=== PATIENT | male | born 1940 | race Caucasian/White ===

== ENCOUNTER 2017-01-24 17:08 | Inpatient (IN) | payer MEDICARE ==
[2017-01-24] MEDS ORDERED: 0.9 % SODIUM CHLORIDE 1,000 ML BAG IV ONE (17:25)
--- NOTE | 2017-01-24 17:30 | Emergency Department Record ---
History of Present Illness - General Source: Patient, Family Mode of Arrival: EMS Limitations: Other (History of stroke, some difficulty with speech) - History of Present Illness Initial Comments: 76 yo male presents with abdominal pain that started today. The patient is mildly limited historian due to prior stroke. He developed left sided pain throughout the afternoon. No vomiting but some decreased appetite. Per his he did have a fever of 102. No cough. No dysuria. No diarrhea. He tends to have constipation mostly. He has a history of radiation proctitis. Past surgery includes hernia repair and prostate. Onset/Timin -: Days(s) Location: [facility] Radiation: None Migration to: No migration Severity: Severe Quality: Sharp Consistency: Intermittent Improves With: Nothing Worsens With: Nothing Associated Symptoms: Fever, Nausea <MUNA MILLER - Last Filed: 01/24/17 19:20> <Kalani Black - Last Filed: 01/24/17 23:15> - General Chief Complaint: Abdominal Pain Stated Complaint: ABD PAIN Time Seen by Provider: 01/24/17 17:20 - Related Data Home Medications Medication Instructions Recorded Confirmed Last Taken Amlodipine Besylate [Norvasc] 5 mg PO DAILY 01/24/17 01/24/17 01/24/17 Ascorbic Acid [Vitamin C] 500 mg PO DAILY 01/24/17 01/24/17 01/24/17 Cholecalciferol (Vitamin D3) 5,000 unit PO DAILY 01/24/17 01/24/17 01/24/17 [Vitamin D3] Docusate Sodium [Colace] 100 mg PO QHS 01/24/17 01/24/17 01/23/17 Docusate Sodium [Stool Softener] 100 mg PO QHS 01/24/17 01/24/17 01/23/17 Donepezil HCl 5 mg PO QHS 01/24/17 01/24/17 01/23/17 Escitalopram Oxalate [Lexapro] 10 mg PO DAILY 01/24/17 01/24/17 Unknown Ezetimibe 10 mg PO DAILY 01/24/17 01/24/17 01/24/17 Fexofenadine HCl 60 mg PO DAILY 01/24/17 01/24/17 01/24/17 Fluticasone Propionate [Flonase] 2 spray EACH NARES DAILY 01/24/17 01/24/1717 Levothyroxine Sodium [Synthroid] 50 mcg PO DAILY 01/24/17 01/24/17 01/24/17 Losartan Potassium [Losartan 50 mg PO DAILY 01/24/17 01/24/17 01/23/17 Potassium] Melatonin 10 mg PO QHS 01/24/17 01/24/17 01/23/17 Modafinil [Provigil] 100 mg PO DAILY 01/24/17 01/24/17 01/24/17 [place]-3 Fatty Acids/Fish Oil [Fish 1 each PO DAILY 01/24/17 01/24/17 01/24/17 Oil 1,000 mg Capsule] Omeprazole 40 mg PO DAILY 01/24/17 01/24/17 01/24/17 Allergies Allergy/AdvReac Type Severity Reaction Status Date / Time mold Allergy PT UNSURE Verified 01/24/17 17:23 OF REACTION Penicillins Allergy PT UNSURE Verified 01/24/17 17:23 OF REACTION rosuvastatin [From Crestor] Allergy PT UNSURE Verified 01/24/17 17:23 OF REACTION Sulfa (Sulfonamide Allergy PT UNSURE Verified 01/24/17 17:23 Antibiotics) OF REACTION aspirin AdvReac Severe pt had a Verified 01/24/17 18:58 bleed NSAIDS (Non-Steroidal AdvReac Severe pt had a Verified 01/24/17 18:58 Anti-Inflamma bleed Travel Screening - Travel/Exposure Within Last 30 Days Have you traveled within the last 30 days?: No <MUNA MILLER - Last Filed: 01/24/17 19:20> Review of Systems Constitutional: Reports: Fever, Weakness. Denies: Chills Eyes: Denies: Eye discharge, Eye pain, Photophobia ENT: Denies: Congestion, Throat pain Respiratory: Denies: Cough, Dyspnea, Hemoptysis, Stridor, Wheezes Cardiovascular: Denies: Chest pain, Palpitations, Syncope Endocrine: Denies: Fatigue, Polydipsia, Polyuria Gastrointestinal: Reports: Abdominal pain, Constipation, Nausea. Denies: Diarrhea, Hematemesis, Hematochezia, Vomiting Genitourinary: Denies: Dysuria, Frequency, Hematuria Musculoskeletal: Denies: Arthralgia, Back pain, Other Skin: Denies: Bruising, Change in color, Rash Neurological: Denies: Headache, Numbness, Weakness Psychiatric: Denies: Anxiety Hematological/Lymphatic: Denies: Blood Clots, Easy bleeding, Easy bruising, Swollen glands <MUNA MILLER - Last Filed: 01/24/17 19:20> Past Medical History - SOCIAL HISTORY Smoking Status: Never smoker Alcohol Use: None Drug Use: None - RESPIRATORY Hx Respiratory Disorders: No - CARDIOVASCULAR Hx Cardio Disorders: Yes Hx Hypertension: Yes - NEURO Hx Neuro Disorders: Yes Hx CVA: Yes (2013) - GI Hx GI Disorders: Yes Hx Reflux: Yes - Hx Genitourinary Disorders: No - ENDOCRINE Hx Endocrine Disorders: Yes Hx Thyroid Disease: Yes - MUSCULOSKELETAL Hx Musculoskeletal Disorders: No - PSYCH Hx Psych Problems: No - HEMATOLOGY/ONCOLOGY Hx Hematology/Oncology Disorders: Yes Hx Cancer: Yes (prostate, skin) Hx Radiation Therapy: Yes <MUNA MILLER - Last Filed: 01/24/17 19:20> Family Medical History Any Significant Family History?: Yes Family Hx Comment (NOT TO BE USED IN PLACE OF ITEMS BELOW): Uncle/Grandfather- Alzhiemer's Hx Stroke: Father, Mother, Grandparents <MUNA MILLER - Last Filed: 01/24/17 19:20> Physical Exam - General General Appearance: Alert, Cooperative, No acute distress Limitations: Language barrier (due to prior stroke) - Head Head exam: Normal inspection - Eye Eye exam: Normal appearance, PERRL - ENT ENT exam: Normal exam Ear exam: Normal external inspection Nasal Exam: Normal inspection Mouth exam: Normal external inspection Teeth exam: Normal inspection - Neck Neck exam: Normal inspection, Full ROM. negative: Tenderness - Respiratory Respiratory exam: Normal lung sounds bilaterally. negative: Respiratory distress - Cardiovascular Cardiovascular Exam: Regular rate, Normal rhythm, Normal heart sounds - GI/Abdominal GI/Abdominal exam: Soft, Guarding, Tenderness (Left sided tenderness to palpation). negative: Distended - Rectal Rectal exam: Deferred - exam: Deferred - Extremities Extremities exam: Normal inspection, Full ROM, Normal capillary refill. negative: Tenderness - Back Back exam: Reports: Normal inspection, Full ROM. Denies: Muscle spasm, Rash noted, Tenderness - Neurological Neurological exam: Alert, Altered - Psychiatric Psychiatric exam: Normal affect, Normal mood - Skin Skin exam: Dry, Intact, Normal color, Warm <MUNA MILLER - Last Filed: 01/24/17 19:20> Course Vital Signs 01/24/17 17:15 Temperature 99.1 F Pulse Rate 102 H Respiratory 20 Rate Blood Pressure 130/90 Pulse Ox 92 L - Reevaluation(s) Reevaluation #1: The labs were reviewed The WBC count was 14.4 The lactic acid is negative 01/24/17 19:04 Reevaluation #2: The case was signed out to Dr Black for CT results and disposition Please refer to her chart for results and further documentation. 01/24/17 19:20 <MUNA MILLER - Last Filed: 01/24/17 19:20> Vital Signs 01/24/17 01/24/17 01/24/17 17:15 18:00 18:58 Temperature 99.1 F 97.5 F L Pulse Rate 102 H Pulse Rate [ 94 H 97 H Data Processing Supervisor ] Respiratory 20 18 20 Rate Blood Pressure 130/90 Blood Pressure 129/93 131/84 [Left Arm] Pulse Ox 92 L 93 L 95 01/24/17 20:21 Temperature 98.2 F Pulse Rate Pulse Rate [ 81 Data Processing Supervisor ] Respiratory 22 Rate Blood Pressure Blood Pressure 125/84 [Left Arm] Pulse Ox 95 <Kalani Black - Last Filed: 01/24/17 23:15> Medical Decision Making - Lab Data Result diagrams: 01/24/17 17:36 01/24/17 17:36 <MUNA MILLER - Last Filed: 01/24/17 19:20> - Lab Data Result diagrams: 01/24/17 17:36 01/24/17 17:36 Lab Results 01/24/17 01/24/17 01/24/17 Range/Units 17:36 17:36 17:36 WBC 14.4 H (4.2-12.2) K/uL RBC 4.41 (4.40-5.70) M/uL Hgb 15.3 (14.0-18.0) gm/dl Hct 43.5 (42.0-52.0) % MCV 98.6 H (81-97) fl MCH 34.7 H (27-33) pg MCHC 35.2 (32-36) g/dl RDW 13.3 (11.5-14.5) % Plt Count 178 (130-400) K/uL MPV 10.4 (7.4-10.4) fl Neutrophils % 92.0 H (47-80) % Eosinophils % Not Reportable Basophils % Not Reportable Lymphocytes 2.0 L (16-45) % Monocytes 6.0 (0-9) % Platelet Estimate Normal (NORMAL) RBC Morphology Normal Sodium 137 (136-145) mmol/L Potassium 3.9 (3.5-5.1) mmol/L Chloride 105 (98-107) mmol/L Carbon Dioxide 21.8 L (22-30) mmol/L Anion Gap 10.2 (7-16) BUN 15 (9-20) mg/dL Creatinine 0.8 (0.66-1.25) mg/dL Estimated GFR > 60 ml/min Random Glucose 145 H (70-110) mg/dL Lactic Acid 1.5 (0.7-2.1) mmol/L Calcium 9.2 (8.5-10.1) mg/dL Total Bilirubin 0.94 (0.2-1.3) mg/dL Direct Bilirubin 0.0 (0-0.3) mg/dL AST 27 (17-59) U/L ALT 33 (21-72) U/L Alkaline Phosphatase 69 (38-126) U/L Total Protein 7.5 (6.3-8.2) gm/dL Albumin 4.3 (3.5-5.0) gm/dL Lipase 110 (23-300) U/L Urine Color Urine Appearance Urine pH (5.0-8.0) Ur Specific [place] (1.002-1.030) Urine Protein (NEGATIVE) Urine Glucose (UA) (NEGATIVE) Urine Ketones (NEGATIVE) Urine Blood (NEGATIVE) Urine Nitrite (NEGATIVE) Urine Bilirubin (NEGATIVE) Urine Urobilinogen (0.20 - 1.00) E.U./dL Ur Leukocyte Esterase (NEGATIVE) 01/24/17 Range/Units 17:55 WBC (4.2-12.2) K/uL RBC (4.40-5.70) M/uL Hgb (14.0-18.0) gm/dl Hct (42.0-52.0) % MCV (81-97) fl MCH (27-33) pg MCHC (32-36) g/dl RDW (11.5-14.5) % Plt Count (130-400) K/uL MPV (7.4-10.4) fl Neutrophils % (47-80) % Eosinophils % Basophils % Lymphocytes (16-45) % Monocytes (0-9) % Platelet Estimate (NORMAL) RBC Morphology Sodium (136-145) mmol/L Potassium (3.5-5.1) mmol/L Chloride (98-107) mmol/L Carbon Dioxide (22-30) mmol/L Anion Gap (7-16) BUN (9-20) mg/dL Creatinine (0.66-1.25) mg/dL Estimated GFR ml/min Random Glucose (70-110) mg/dL Lactic Acid (0.7-2.1) mmol/L Calcium (8.5-10.1) mg/dL Total Bilirubin (0.2-1.3) mg/dL Direct Bilirubin (0-0.3) mg/dL AST (17-59) U/L ALT (21-72) U/L Alkaline Phosphatase (38-126) U/L Total Protein (6.3-8.2) gm/dL Albumin (3.5-5.0) gm/dL Lipase (23-300) U/L Urine Color Yellow Urine Appearance Clear Urine pH 6.5 (5.0-8.0) Ur Specific [place] 1.015 (1.002-1.030) Urine Protein 30 mg/dl H (NEGATIVE) Urine Glucose (UA) Negative (NEGATIVE) Urine Ketones Negative (NEGATIVE) Urine Blood Negative (NEGATIVE) Urine Nitrite Negative (NEGATIVE) Urine Bilirubin Negative (NEGATIVE) Urine Urobilinogen 0.2 (0.20 - 1.00) E.U./dL Ur Leukocyte Esterase Negative (NEGATIVE) <Kalani Black - Last Filed: 01/24/17 23:15> Disposition <MUNA MILLER - Last Filed: 01/24/17 19:20> Disposition: Admit Decision to Admit: Admit from ER Decision to Admit Date: 01/24/17 Decision to Admit Time: 22:59 <Kalani Black - Last Filed: 01/24/17 23:15> Clinical Impression: Diverticulitis Qualifiers: Diverticulitis site: large intestine Diverticulitis bleeding: without bleeding Diverticulitis complication: without perforation or abscess Qualified Code(s): K57.32 - Diverticulitis of large intestine without perforation or abscess without bleeding Disposition: Still a Patient at [facility] Forms: Patient Portal Access
[2017-01-24 17:41] LABS: HEMATOCRIT 43.5 % (42.0-52.0); HEMOGLOBIN 15.3 gm/dl (14.0-18.0); MEAN CELL VOLUME 98.6 fl (81-97); MEAN CORPUSCULAR HEMOGLOBIN 34.7 pg (27-33); MEAN CORPUSCULAR HGB CONC 35.2 g/dl (32-36); MEAN PLATELET VOLUME 10.4 fl (7.4-10.4); PLATELET COUNT 178 K/uL (130-400); RED BLOOD COUNT 4.41 M/uL (4.40-5.70); RED CELL DISTRIBUTION WIDTH 13.3 % (11.5-14.5); WHITE BLOOD COUNT W/O DIFF 14.4 K/uL (4.2-12.2)
[2017-01-24 17:52] LABS: PLATELET ESTIMATE NORMAL (NORMAL)
[2017-01-24 17:54] LABS: ALBUMIN 4.3 gm/dL (3.5-5.0); ALKALINE PHOSPHATASE 69 U/L (38-126); ALT/SGPT 33 U/L (21-72); ANION GAP 10.2 (7-16); AST/SGOT 27 U/L (17-59); BILIRUBIN,TOTAL 0.94 mg/dL (0.2-1.3); BLOOD UREA NITROGEN 15 mg/dL (9-20); CARBON DIOXIDE 21.8 mmol/L (22-30); CREATININE 0.8 mg/dL (0.66-1.25); EST GLOMERULAR FILTRATION RATE > 60 ml/min; GLUCOSE,RANDOM 145 mg/dL (70-110); LIPASE 110 U/L (23-300); TOTAL PROTEIN 7.5 gm/dL (6.3-8.2)
[2017-01-24 18:00] LABS: URINE APPEARANCE CLEAR; URINE BILIRUBIN NEGATIVE (NEGATIVE); URINE BLOOD NEGATIVE (NEGATIVE); URINE COLOR YELLOW; URINE GLUCOSE (UA) NEGATIVE (NEGATIVE); URINE KETONE NEGATIVE (NEGATIVE); URINE LEUKOCYTE ESTERASE NEGATIVE (NEGATIVE); URINE NITRITE NEGATIVE (NEGATIVE); URINE UROBILINOGEN 0.2 E.U./dL (0.20 - 1.00)
[2017-01-24] MEDS ORDERED: ACETAMINOPHEN 1,000 MG/100 ML BTL IVPB ONE (19:29)
[2017-01-24] MEDS ORDERED: CIPROFLOXACIN LACTATE/D5W 400 MG/200 ML BAG IVPB ONE (21:17)
[2017-01-24] MEDS ORDERED: PROMETHAZINE HCL 25 MG/ML VIAL IVP ONE (21:36)
[2017-01-24] MEDS ORDERED: HYDROMORPHONE HCL 1 MG/ML CPJ IVP ONE (21:36)
[2017-01-24] MEDS ORDERED: METRONIDAZOLE IVPB 500 MG/100 ML BAG IVPB ONE (22:28)
[2017-01-25] MEDS ORDERED: ACETAMINOPHEN 500 MG TABLET PO PRN (00:11)
[2017-01-25] MEDS ORDERED: PROMETHAZINE HCL 25 MG/ML VIAL IVP PRN (00:11)
[2017-01-25] MEDS ORDERED: TEMAZEPAM 15 MG CAPSULE PO PRN (00:11)
[2017-01-25] MEDS ORDERED: CIPROFLOXACIN LACTATE/D5W 400 MG/200 ML BAG IVPB ONE (00:11)
[2017-01-25] MEDS: METRONIDAZOLE IVPB 500 MG/100 ML BAG IVPB SCH ×3 (00:24→16:25)
[2017-01-25] MEDS: 0.9 % SODIUM CHLORIDE 1000ML 1,000 ML IV PRN (01:02)
[2017-01-25] MEDS: HYDROMORPHONE HCL 1 MG/ML CPJ IVP PRN ×3 (01:06→16:06)
[2017-01-25 06:29] LABS: HEMATOCRIT 39.7 % (42.0-52.0); HEMOGLOBIN 13.2 gm/dl (14.0-18.0); MEAN CELL VOLUME 98.8 fl (81-97); MEAN CORPUSCULAR HEMOGLOBIN 32.8 pg (27-33); MEAN CORPUSCULAR HGB CONC 33.2 g/dl (32-36); MEAN PLATELET VOLUME 10.6 fl (7.4-10.4); PLATELET COUNT 167 K/uL (130-400); RED BLOOD COUNT 4.02 M/uL (4.40-5.70); RED CELL DISTRIBUTION WIDTH 13.1 % (11.5-14.5)
[2017-01-25 06:43] LABS: PLATELET ESTIMATE NORMAL (NORMAL)
--- NOTE | 2017-01-25 07:01 | History & Physical ---
History of Present Illness - Date of Service Date of Service for History & Physical: 01/25/17 - History of Present Illness Admitting Diagnosis: diverticulitis History of Present Illness: 76 y/o male from [facility] for 1 day history of abdominal pain and fever. PMH: CVA, HTN, GERD, hypothyroidism, prostate ca PSH: hernia repair, prostatectomy Patient is a poor historian due to CVA history and memory impairment. Per report, began with abdominal pain the morning of admission which progressed to fever of 102 and increased weakness. notes he is usually independent, able to walk with verbal assist. Day of admission was not able to follow verbal cues , left sided weakness more pronounced, left sided visual neglect more pronounced. Denies knowledge of vomiting but has noticed decreased appetite. Denies dysuria, cough, diarrhea. Known hx diverticulosis with a few previous episodes of colitis-type symptoms, never required hospitalization. Last colonoscopy March [address] Heath with subsequent referral to Dr Lebron due to high internal hemorrhoids While in the ED WBC 14.4, Hgb 15.3, Band 7.0, GFR>60. VSS. UA showed proteinuria. CT abdomen/pelvis- diverticulosis, likely signoid diverticulitis, no abscess. Hypodense liver lesions, questionable cyst in nature, 1cm adrenal nodule, small hiatal hernia. Radiologist recommends f/u liver lesions and adrenal nodule in 3-6 months. Admitted for diverticulitis, IV antibiotics, pain management 01/25/17- resting in bed comfortably, at bedside to help with history. Reports he is weaker than usual to left side, needs more assist. Did have large "explosive" BM this am. Appears painful with touching abdomen but notices he is much more comfortable after Dilaudid is given. No new developments over the last several hours. Has remained afebrile PCP: Dr Castillo-angela [employer] Hand- Dr Heath Travel Screening - Travel/Exposure Within Last 30 Days Have you traveled within the last 30 days?: No - Travel/Exposure Within Last Year Have you traveled outside the [place] in the last year?: No - Additonal Travel Details Have you been exposed to anyone with a communicable illness?: No Review of Systems Constitutional: Reports: Fever, Weakness. Denies: Chills Eyes: Denies: Eye discharge, Eye pain, Photophobia ENT: Denies: Congestion, Throat pain Respiratory: Denies: Cough, Dyspnea, Hemoptysis, Stridor, Wheezes Cardiovascular: Denies: Chest pain, Palpitations, Syncope Endocrine: Denies: Fatigue, Polydipsia, Polyuria Gastrointestinal: Reports: Abdominal pain, Constipation, Nausea. Denies: Diarrhea, Hematemesis, Hematochezia, Vomiting Genitourinary: Denies: Dysuria, Frequency, Hematuria Musculoskeletal: Denies: Arthralgia, Back pain, Other Skin: Denies: Bruising, Change in color, Rash Neurological: Denies: Headache, Numbness, Weakness Psychiatric: Denies: Anxiety Hematological/Lymphatic: Denies: Blood Clots, Easy bleeding, Easy bruising, Swollen glands Past Medical History - SOCIAL HISTORY Smoking Status: Never smoker Alcohol Use: Rare Drug Use: None - RESPIRATORY Hx Respiratory Disorders: No - CARDIOVASCULAR Hx Cardio Disorders: Yes Hx Hypertension: Yes - NEURO Hx Neuro Disorders: Yes Hx CVA: Yes (2013) Hx Dementia: Yes Hx Dizziness: Yes Hx Headaches: Yes - GI Hx GI Disorders: Yes Hx Abdominal Pain: Yes Hx Diverticulitis: Yes Hx GI Bleed: Yes Hx Reflux: Yes Hx Irritable Bowel: Yes Hx Rectal Bleeding: Yes Hx of Polyps: Yes - Hx Genitourinary Disorders: No Hx Bladder Problem: Yes Hx Dialysis: No Hx Kidney Stones: No Hx Prostate Problems: Yes Hx Renal Disease: No Hx UTI: Yes - ENDOCRINE Hx Endocrine Disorders: Yes Hx Diabetes: No Hx Thyroid Disease: Yes - MUSCULOSKELETAL Hx Musculoskeletal Disorders: No Hx Arthritis: No Hx Back Injury: No Hx Fibromyalgia: No Hx Gout: No Hx Musculoskeletal Disease: No Hx Osteoporosis: No - PSYCH Hx Psych Problems: No Hx Anxiety: Yes Hx Behavior Problems: Yes Hx Depression: Yes Hx Suicide Attempt: No - HEMATOLOGY/ONCOLOGY Hx Hematology/Oncology Disorders: Yes Hx Anemia: No Hx Blood Disorders: No Hx Bruising: No Hx Cancer: Yes (prostate, skin) Hx Chemotherapy: No Hx Radiation Therapy: Yes Hx Clotting Problems: No Hx Unexplained Bleeding: No Hx Blood Transfusions: No Family Medical History Any Significant Family History?: Yes Family Hx Comment (NOT TO BE USED IN PLACE OF ITEMS BELOW): Uncle/Grandfather- Alzhiemer's Hx Dementia: Mother, Grandparents Hx HTN: Father, Brother/Sister Hx Stroke: Father, Mother, Grandparents H&P Meds/Allergies - Allergies Allergies: Allergies Allergy/AdvReac Type Severity Reaction Status Date / Time mold Allergy PT UNSURE Verified 01/24/17 17:23 OF REACTION Penicillins Allergy PT UNSURE Verified 01/24/17 17:23 OF REACTION rosuvastatin [From Crestor] Allergy PT UNSURE Verified 01/24/17 17:23 OF REACTION Sulfa (Sulfonamide Allergy PT UNSURE Verified 01/24/17 17:23 Antibiotics) OF REACTION aspirin AdvReac Severe pt had a Verified 01/24/17 18:58 bleed NSAIDS (Non-Steroidal AdvReac Severe pt had a Verified 01/24/17 18:58 Anti-Inflamma bleed - Home Medications Home Medications Medication Instructions Recorded Confirmed Last Taken Amlodipine Besylate [Norvasc] 5 mg PO DAILY 01/24/17 01/24/17 01/24/17 Ascorbic Acid [Vitamin C] 500 mg PO DAILY 01/24/17 01/24/17 01/24/17 Cholecalciferol (Vitamin D3) 5,000 unit PO DAILY 01/24/17 01/24/17 01/24/17 [Vitamin D3] Docusate Sodium [Colace] 100 mg PO QHS 01/24/17 01/24/17 01/23/17 Docusate Sodium [Stool Softener] 100 mg PO QHS 01/24/17 01/24/17 01/23/17 Donepezil HCl 5 mg PO QHS 01/24/17 01/24/17 01/23/17 Escitalopram Oxalate [Lexapro] 5 mg PO DAILY 01/24/17 01/25/17 Unknown Ezetimibe 10 mg PO DAILY 01/24/17 01/24/17 01/24/17 Fexofenadine HCl 60 mg PO DAILY 01/24/17 01/24/17 01/24/17 Fluticasone Propionate [Flonase] 2 spray EACH NARES DAILY 01/24/17 01/24/17 Levothyroxine Sodium [Synthroid] 50 mcg PO DAILY 01/24/17 01/24/17 01/24/17 Losartan Potassium [Losartan 50 mg PO DAILY 01/24/17 01/24/17 01/23/17 Potassium] Melatonin 1 - 2 tab PO QHS 01/24/17 01/25/17 01/23/17 Modafinil [Provigil] 100 mg PO DAILY 01/24/17 01/24/17 01/24/17 [place]-3 Fatty Acids/Fish Oil [Fish 1 each PO DAILY 01/24/17 01/24/17 01/24/17 Oil 1,000 mg Capsule] Omeprazole 40 mg PO DAILY 01/24/17 01/24/17 01/24/17 Cholecalciferol (Vitamin D3) 1 cap PO DAILY 01/25/17 01/25/17 Unknown [Vitamin D3] Dextran 70/Hypromellose [Natural 1 drop AFFEYE Q2HR PRN 01/25/17 01/25/17 Unknown Balance Tears Eye Drop] Dextran 70/Hypromellose [Natural 1 drop AFFEYE QHS 01/25/17 01/25/17 Unknown Balance Tears Eye Drop] Fluvoxamine Maleate 0.5 tab PO DAILY 01/25/17 01/25/17 Unknown Mirabegron [Myrbetriq] 1 tab PO DAILY 01/25/17 01/25/17 Unknown Omeprazole [Omeprazole] 1 cap PO DAILY 01/25/17 01/25/17 Unknown - Active Medications Active Medications: Current Medications Acetaminophen (Tylenol 500mg Tab) 1,000 mg PO Q6H PRN PRN Reason: PAIN/TEMP Amlodipine Besylate (Norvasc) 5 mg PO DAILY [facility] Docusate Sodium (Colace) 100 mg PO QHS [facility] Donepezil HCl (Aricept) 5 mg PO QHS [facility] Ezetimibe (Zetia) 10 mg PO DAILY [facility] Escitalopram Oxalate (Lexapro) 10 mg PO DAILY [facility] Fluticasone Propionate (Flonase) 2 spray NA DAILY [facility] Hydromorphone HCl (Dilaudid) 0.5 mg IVP Q4H PRN PRN Reason: Abdominal Pain Last Admin: 01/25/17 01:06 Dose: 0.5 mg Sodium Chloride () 1,000 mls @ 100 mls/hr IV .Q10H PRN PRN Reason: LARGE VOLUME IV Last Admin: 01/25/17 01:02 Dose: 100 mls/hr Metronidazole/Sodium Chloride (Flagyl) 500 mg in 100 mls @ 100 mls/hr IVPB Q8H [facility] Stop: 01/30/17 00:12 Last Admin: 01/25/17 00:24 Dose: Not Given Levothyroxine Sodium (Synthroid) 50 mcg PO DAILY [facility] Losartan Potassium (Cozaar) 50 mg PO DAILY [facility] Non-Formulary Medication (Fexofenadine Hcl [Fexofenadine Hcl]) 60 mg PO DAILY [facility] Non-Formulary Medication (Melatonin [Melatonin]) 10 mg PO QHS [facility] Non-Formulary Medication (Modafinil [Provigil]) 100 mg PO DAILY [facility] Pantoprazole Sodium (Protonix) 80 mg PO DAILYAC [facility] Promethazine HCl (Phenergan) 6.25 mg IVP Q6H PRN PRN Reason: NAUSEA Temazepam (Restoril) 15 mg PO QHS PRN PRN Reason: INSOMNIA Physical Exam - Vital Signs Vital Signs: Vital Signs - Last 24 Hrs Temp Pulse Resp BP Pulse Ox 01/24/17 23:35 98.2 F 71 18 143/82 95 - General General Appearance: Alert, Cooperative, No acute distress Limitations: Language barrier (due to prior stroke, poor historian) - Head Head exam: Normal inspection - Eye Eye exam: Normal appearance, PERRL - ENT ENT exam: Normal exam Ear exam: Normal external inspection Nasal Exam: Normal inspection Mouth exam: Normal external inspection Teeth exam: Normal inspection - Neck Neck exam: Normal inspection, Full ROM. negative: Tenderness - Respiratory Respiratory exam: Normal lung sounds bilaterally. negative: Respiratory distress - Cardiovascular Cardiovascular Exam: Regular rate, Normal rhythm, Normal heart sounds Peripheral Pulses: 2+: Dorsalis Pedis (R), Dorsalis Pedis (L) - GI/Abdominal GI/Abdominal exam: Soft, Normal bowel sounds, Distended (mild), Tenderness ( Left sided tenderness to palpation). negative: Guarding, Rigid - Rectal Rectal exam: Deferred - exam: Deferred - Extremities Extremities exam: Normal inspection, Full ROM, Normal capillary refill. negative: Tenderness - Back Back exam: Reports: Normal inspection, Full ROM. Denies: Muscle spasm, Rash noted, Tenderness - Neurological Neurological exam: Alert, Altered - Psychiatric Psychiatric exam: Normal affect, Normal mood - Skin Skin exam: Dry, Intact, Normal color, Warm Results - Labs Result Diagrams: 01/25/17 06:07 01/24/17 17:36 Labs Last 24 Hours: Laboratory Results - last 24 hr 01/25/17 06:07 WBC 13.0 H RBC 4.02 L Hgb 13.2 L Hct 39.7 L MCV 98.8 H MCH 32.8 MCHC 33.2 RDW 13.1 Plt Count 167 MPV 10.6 H Neutrophils % 84.0 H Band Neutrophils % 7.0 H Eosinophils % Not Reportable Basophils % Not Reportable Lymphocytes 6.0 L Monocytes 3.0 Platelet Estimate Normal RBC Morphology Normal - Imaging and Cardiology CT scan - abdomen Status: Report reviewed (1- diverticulosis, likely sigmoid diverticulitis without abscess 2- hypodense liver lesions, questionable cysts, recommend f/u 4- 6 months 3- 1cm adrenal nodule, f/u 4-6 months 4- hiatal hernia) VTE H&P Assessment - Risk for VTE Risk for VTE: Yes Risk Level: Moderate Risk Assessment Date: 01/25/17 Risk Assessment Time: 13:19 VTE Orders Placed or Will Be Placed: Yes Plan - Inpatient Certification Inpatient Certification: Admit to inpatient care: Based on my medical assessment, after consideration of patient's risk factors (age, co-morbidities and patient presenting symptoms and acuity), I expect that this patient will remain in the hospital greater than or equal to two midnights and that the services needed warrant inpatient care because: Patient Risk Factors: [] Estimated length of stay: [] The patient may reasonably be expected to be discharged or transferred to a hospital within 96 hours after admission to [facility]. Services needed: [] Post hospital care (if known): [] I certify that my determination is in accordance with my understanding of Medicare requirements for reasonable and necessary inpatient services. - Detailed Diagnosis and Plan (1) Diverticulitis Current Visit: Yes Status: Acute Qualifiers: Diverticulitis site: large intestine Diverticulitis bleeding: without bleeding Diverticulitis complication: without perforation or abscess Qualified Code(s): K57.32 - Diverticulitis of large intestine without perforation or abscess without bleeding Base Code: K57.92 - DVTRCLI OF INTEST, PART UNSP, W/O PERF OR ABSCESS W/O BLEED Comment: 01/25/17- 76 y/o male with 1 day hx abdominal pain and fever admitted with sigmoid diverticulitis - case discussed with Dr Lugo, he viewed CT scan abdomen/pelvis. Uncomplicated diverticulitis, may begin clear liquid diet, advance as tolerated , continue IV antibiotics as prescribed. - continue pain management with Dilaudid - phenergan for nausea - PT/OT eval for weakness and hx CVA w/ left sided neglect - add Metamucil 1pkt daily - plan to discharge back to [facility] when stable (2) Weakness Current Visit: Yes Status: Acute Base Code: R53.1 - WEAKNESS Comment: 01/25- 76 y/o male with 1 day hx abdominal pain and fever admitted with sigmoid diverticulitis - case discussed with Dr Lugo, he viewed CT scan abdomen/pelvis. Uncomplicated diverticulitis, may begin clear liquid diet, advance as tolerated , continue IV antibiotics as prescribed. - continue pain management with Dilaudid - phenergan for nausea - PT/OT eval for weakness and hx CVA w/ left sided neglect - add Metamucil 1pkt daily - plan to discharge back to [facility] when stable (3) DVT prophylaxis Current Visit: Yes Status: Acute Base Code: [id number] - Comment: 01/25/17- hx hemorrhagic stroke. Will use SCD while in bed (4) Full code status Current Visit: Yes Status: Acute Base Code: Z78.9 - OTHER SPECIFIED HEALTH STATUS Comment: 01/25/17- Full code during this hospitalization
[2017-01-25] MEDS: PANTOPRAZOLE SODIUM 40 MG TABLET PO SCH (07:08)
--- NOTE | 2017-01-25 07:53 | CT SCAN REPORT ---
EXAM: CT OF THE ABDOMEN AND PELVIS HISTORY: LEFT SIDED ABDOMINAL PAIN AND FEVER. TECHNIQUE: CT of the abdomen and pelvis was performed following intravenous and oral contrast administration. 100 ml of Omnipaque 300 contrast was used for this examination. Comparison: None. FINDINGS: There are atelectatic changes at the lung bases. The lung bases otherwise are unremarkable. There is a small hiatal hernia. There are several small low density liver lesions too small to definitively assess, but probably cysts. The spleen is unremarkable. The liver is otherwise unremarkable. No pancreatic mass or inflammatory change. There are no calcified gallstones. There is a right adrenal nodule. This measures 10 mm in size. The adrenal glands are otherwise unremarkable. There is bilateral renal function with no renal mass or hydronephrosis. There is no aortic aneurysm. No periaortic mass or adenopathy. There are no dilated bowel loops. There is abnormal wall thickening with adjacent inflammatory change in the distal descending colon near the junction with the sigmoid colon. This is probably due to diverticulitis. There is diverticulosis in the region. There are streaky changes in the fat. There is o abscess or focal fluid collection. No free air or free fluid is identified. IMPRESSION: 1. THERE IS DIVERTICULOSIS. 2. THERE ARE INFLAMMATORY CHANGES SURROUNDING THE DISTAL DESCENDING COLON NEAR ITS JUNCTION WITH THE SIGMOID COLON LIKELY DUE TO DIVERTICULITIS. NO ABSCESS, FREE AIR OR FREE FLUID IDENTIFIED. 3. THERE IS SMALL HYPODENSE LIVER LESIONS MOST LIKELY REPRESENTING CYSTS, BUT TOO SMALL TO DEFINITIVELY ASSESS. FOLLOW-UP CT IN FOUR TO SIX MONTHS TIME RECOMMENDED. 4. 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 5. MINOR ATELECTATIC CHANGE AT THE LUNG BASES. 6. SMALL HIATAL HERNIA. JOB NUMBER: [id number] [facility]
[2017-01-25] MEDS ORDERED: OMEPRAZOLE 40 MG PO SCH (10:00)
[2017-01-25] MEDS ORDERED: ESCITALOPRAM 10 MG TABLET PO SCH (10:00)
[2017-01-25] MEDS: LORATADINE 10 MG TABLET PO SCH (10:00)
[2017-01-25] MEDS ORDERED: Non-Formulary MISC (Losartan Potassium [Losartan Potassium] 50 MG) PO SCH (10:00)
[2017-01-25] MEDS: AMLODIPINE BESYLATE 5MG TAB PO SCH (10:00)
[2017-01-25] MEDS: LEVOTHYROXINE SODIUM 50 MCG TABLET PO SCH (10:00)
[2017-01-25] MEDS ORDERED: MODAFINIL 100 MG PO SCH (10:00)
[2017-01-25] MEDS: LOSARTAN POTASSIUM 25 MG TABLET PO SCH ×3 (10:01→17:20)
[2017-01-25] MEDS: EZETIMIBE 10 MG TABLET PO SCH (10:02)
[2017-01-25] MEDS: FLUTICASONE PROPIONATE 50MCG NASAL 16 GM BTL SCH (10:02)
[2017-01-25] MEDS: MODAFINIL 100 MG PO SCH (12:00)
[2017-01-25] MEDS: PATIENT OWN MED: MYBETRIQ 50 MG PO SCH (16:23)
[2017-01-25] MEDS ORDERED: DOCUSATE SODIUM 100 MG CAPSULE PO SCH (22:00)
[2017-01-25] MEDS ORDERED: MELATONIN 5 MG TABLET PO SCH (22:00)
[2017-01-25] MEDS ORDERED: DONEPEZIL HCL 5 MG TABLET PO SCH (22:00)
[2017-01-25] MEDS: ZINC OXIDE 28.35 GM TUBE TOP PRN (22:15)
[2017-01-26] MEDS: METRONIDAZOLE IVPB 500 MG/100 ML BAG IVPB SCH ×3 (00:22→15:49)
[2017-01-26] MEDS: 0.9 % SODIUM CHLORIDE 1000ML 1,000 ML IV PRN ×2 (00:23→14:37)
[2017-01-26] MEDS: LEVOTHYROXINE SODIUM 50 MCG TABLET PO SCH (06:46)
[2017-01-26] MEDS: PANTOPRAZOLE SODIUM 40 MG TABLET PO SCH (06:46)
[2017-01-26] MEDS: HYDROMORPHONE HCL 1 MG/ML CPJ IVP PRN (07:00)
[2017-01-26] MEDS: ZINC OXIDE 28.35 GM TUBE TOP PRN (07:01)
[2017-01-26 07:05] LABS: HEMATOCRIT 43.1 % (42.0-52.0); HEMOGLOBIN 14.6 gm/dl (14.0-18.0); MEAN CELL VOLUME 98.2 fl (81-97); MEAN CORPUSCULAR HGB CONC 33.9 g/dl (32-36); MEAN PLATELET VOLUME 10.7 fl (7.4-10.4); PLATELET COUNT 199 K/uL (130-400); RED BLOOD COUNT 4.39 M/uL (4.40-5.70); RED CELL DISTRIBUTION WIDTH 13.2 % (11.5-14.5); WHITE BLOOD COUNT W/O DIFF 10.4 K/uL (4.2-12.2)
[2017-01-26 07:07] LABS: MEAN CORPUSCULAR HEMOGLOBIN 33.2 pg (27-33)
[2017-01-26 07:22] LABS: ALB/GLOB RATIO 1.1 (1.1-1.8); ALBUMIN 3.7 gm/dL (3.5-5.0); ALKALINE PHOSPHATASE 69 U/L (38-126); ALT/SGPT 32 U/L (21-72); ANION GAP 8.3 (7-16); AST/SGOT 21 U/L (17-59); BILIRUBIN,TOTAL 0.87 mg/dL (0.2-1.3); BLOOD UREA NITROGEN 11 mg/dL (9-20); CARBON DIOXIDE 23.7 mmol/L (22-30); CREATININE 0.8 mg/dL (0.66-1.25); EST GLOMERULAR FILTRATION RATE > 60 ml/min; GLUCOSE,RANDOM 106 mg/dL (70-110)
[2017-01-26 07:25] LABS: PLATELET ESTIMATE NORMAL (NORMAL)
[2017-01-26] MEDS ORDERED: PSYLLIUM HUSK/ASPARTAME 3.4 GM POWD.PACK PO SCH (10:00)
--- NOTE | 2017-01-26 11:33 | Physician Progress Note ---
Subjective - Date Date of Physician Progress Note: 01/26/17 - Subjective Subjective Comment: Per nursing report had increase in abdominal pain early this am, was given pain medication, became nauseated and given phenergan at that time. Has been resting in bed. Has tolerated clear liquid diet thus far. No new events in the past 24 hours. No active vomiting. Has been passing gas and semi-solid stool Objective - Multidiciplinary Team Multidiciplinary Team: Nursing - Vital Signs Vital Signs: Vital Signs - Last 24 Hrs Temp Pulse Pulse Resp BP BP Pulse Ox 01/26/17 10:00 97.7 F 81 16 118/85 97 01/26/17 09:00 87 79 18 01/26/17 04:33 98.0 F 79 18 136/81 95 01/26/17 00:54 97.9 F 76 16 151/92 95 01/25/17 21:00 100.0 F H 82 18 143/84 95 01/25/17 14:00 98.8 F 87 16 147/75 - General General Appearance: Alert, Cooperative, No acute distress Limitations: Language barrier (due to prior stroke, poor historian) - Head Head exam: Normal inspection - Eye Eye exam: Normal appearance, PERRL - ENT ENT exam: Normal exam Ear exam: Normal external inspection Nasal Exam: Normal inspection Mouth exam: Normal external inspection Teeth exam: Normal inspection - Neck Neck exam: Normal inspection, Full ROM. negative: Tenderness - Respiratory Respiratory exam: Normal lung sounds bilaterally. negative: Respiratory distress - Cardiovascular Cardiovascular Exam: Regular rate, Normal rhythm, Normal heart sounds Peripheral Pulses: 2+: Dorsalis Pedis (R), Dorsalis Pedis (L) - GI/Abdominal GI/Abdominal exam: Soft, Normal bowel sounds, Distended (modest distention), Tenderness (generalized to all quads). negative: Guarding, Rigid - Rectal Rectal exam: Deferred - exam: Deferred - Extremities Extremities exam: Normal inspection, Full ROM, Normal capillary refill. negative: Tenderness - Back Back exam: Reports: Normal inspection, Full ROM. Denies: Muscle spasm, Rash noted, Tenderness - Neurological Neurological exam: Alert, Altered - Psychiatric Psychiatric exam: Normal affect, Normal mood - Skin Skin exam: Dry, Intact, Normal color, Warm Assessment and Plan - Assessment and Plan (1) Diverticulitis Current Visit: Yes Status: Acute Qualifiers: Diverticulitis site: large intestine Diverticulitis bleeding: without bleeding Diverticulitis complication: without perforation or abscess Qualified Code(s): K57.32 - Diverticulitis of large intestine without perforation or abscess without bleeding Base Code: K57.92 - DVTRCLI OF INTEST, PART UNSP, W/O PERF OR ABSCESS W/O BLEED Comment: 01/26/17- 76 y/o male with 1 day hx abdominal pain and fever admitted with sigmoid diverticulitis - case discussed with Dr Lugo, he viewed CT scan abdomen/pelvis. Uncomplicated diverticulitis, may begin clear liquid diet, advance as tolerated , continue IV antibiotics as prescribed. - continue pain management with Dilaudid, may be causing nausea, will observe and change as warranted - phenergan for nausea - PT/OT eval for weakness and hx CVA w/ left sided neglect - add Metamucil 1pkt daily - more abdominal distention today, no tympany or ascites. Will have him up for PT and lunch to allow for gas passage and reassess. Will contact Dr Lugo today for consult should abdominal pain and distention not improve after sitting up and walking with PT - plan to discharge back to [facility] when stable (2) Weakness Current Visit: Yes Status: Acute Base Code: R53.1 - WEAKNESS Comment: 01/26- 76 y/o male with 1 day hx abdominal pain and fever admitted with sigmoid diverticulitis - encourage to amb to bathroom with assist as much as possible - PT/OT eval for weakness and hx CVA w/ left sided neglect - plan to discharge back to [facility] when stable (3) DVT prophylaxis Current Visit: Yes Status: Acute Base Code: [id number] - Comment: 01/26/17- hx hemorrhagic stroke. Will use SCD while in bed (4) Full code status Current Visit: Yes Status: Acute Base Code: Z78.9 - OTHER SPECIFIED HEALTH STATUS Comment: 01/26/17- Full code during this hospitalization Results - Labs Result Diagrams: 01/26/17 06:16 01/26/17 06:16 Labs Last 24 Hours: Laboratory Results - last 24 hr 01/26/17 01/26/17 06:16 06:16 WBC 10.4 RBC 4.39 L Hgb 14.6 Hct 43.1 MCV 98.2 H MCH 33.2 H MCHC 33.9 RDW 13.2 Plt Count 199 MPV 10.7 H Neutrophils % 87.0 H Band Neutrophils % 2.0 Eosinophils % Not Reportable Basophils % Not Reportable Lymphocytes 8.0 L Monocytes 3.0 Platelet Estimate Normal RBC Morphology Normal Sodium 136 Potassium 3.6 Chloride 104 Carbon Dioxide 23.7 Anion Gap 8.3 BUN 11 Creatinine 0.8 Estimated GFR > 60 Random Glucose 106 Calcium 8.6 Total Bilirubin 0.87 AST 21 ALT 32 Alkaline Phosphatase 69 Total Protein 7.0 Albumin 3.7 Globulin 3.3 Albumin/Globulin Ratio 1.1 DVT/PE Assessment - Risk for VTE Risk for VTE: No Risk Level: Moderate Risk Assessment Date: 01/25/17 Risk Assessment Time: 13:19 VTE Orders Placed or Will Be Placed: Yes - Active Medicaitons Current Medications: Current Medications Acetaminophen (Tylenol 500mg Tab) 1,000 mg PO Q6H PRN PRN Reason: PAIN/TEMP Amlodipine Besylate (Norvasc) 5 mg PO DAILY [facility] Last Admin: 01/25/17 10:00 Dose: 5 mg Docusate Sodium (Colace) 100 mg PO QHS [facility] Last Admin: 01/25/17 22:13 Dose: Not Given Donepezil HCl (Aricept) 5 mg PO QHS [facility] Last Admin: 01/25/17 22:10 Dose: 5 mg Ezetimibe (Zetia) 10 mg PO DAILY [facility] Last Admin: 01/25/17 10:02 Dose: 10 mg Fluticasone Propionate (Flonase) 2 spray NA DAILY [facility] Last Admin: 01/25/17 10:02 Dose: 2 spray Hydromorphone HCl (Dilaudid) 0.5 mg IVP Q4H PRN PRN Reason: Abdominal Pain Last Admin: 01/26/17 07:00 Dose: 0.5 mg Sodium Chloride () 1,000 mls @ 100 mls/hr IV .Q10H PRN PRN Reason: LARGE VOLUME IV Last Admin: 01/26/17 00:23 Dose: 100 mls/hr Metronidazole/Sodium Chloride (Flagyl) 500 mg in 100 mls @ 100 mls/hr IVPB Q8H [facility] Stop: 01/30/17 00:12 Last Infusion: 01/26/17 09:30 Dose: Infused [facility] Last Admin: 01/26/17 06:46 Dose: 50 mcg Loratadine (Claritin) 10 mg PO DAILY [facility] Last Admin: 01/25/17 10:00 Dose: 10 mg Losartan Potassium (Cozaar) 50 mg PO 1600 [facility] Last Admin: 01/25/17 16:23 Dose: 50 mg Melatonin (Melatonin) 10 mg PO QHS [facility] Last Admin: 01/25/17 22:12 Dose: 10 mg Pantoprazole Sodium (Protonix) 80 mg PO DAILYAC [facility] Last Admin: 01/26/17 06:46 Dose: 80 mg Patient Own Med: (Modafinil 100 Mg) 1 each PO DAILYWM [facility] Last Admin: 01/25/17 12:00 Dose: 1 each Patient Own Med: (Mybetriq 50 Mg) 1 each PO 1600 [facility] Last Admin: 01/25/17 16:23 Dose: 1 each Promethazine HCl (Phenergan) 6.25 mg IVP Q6H PRN PRN Reason: NAUSEA Last Admin: 01/26/17 07:08 Dose: 6.25 mg Psyllium Hydrophilic Mucilloid (Metamucil Pwd) 3.4 gm PO DAILY [facility] Temazepam (Restoril) 15 mg PO QHS PRN PRN Reason: INSOMNIA Last Admin: 01/25/17 22:12 Dose: 15 mg Zinc Oxide (Desitin) 28.35 gm TOP ASDIR PRN PRN Reason: RASH Last Admin: 01/26/17 07:01 Dose: 28.35 gm AMI Plan - Labs Result Diagrams: 01/26/17 06:16 01/26/17 06:16
[2017-01-26] MEDS: MODAFINIL 100 MG PO SCH (12:04)
[2017-01-26] MEDS: AMLODIPINE BESYLATE 5MG TAB PO SCH (12:07)
[2017-01-26] MEDS: LORATADINE 10 MG TABLET PO SCH (12:07)
[2017-01-26] MEDS: EZETIMIBE 10 MG TABLET PO SCH (12:08)
--- NOTE | 2017-01-26 12:21 | Rehab Evaluation ---
Patient Information - Patient Information Diagnosis: Diverticulitis, weakness Ordered Treatment: PT Evaluate and Treat Status: Initial Evaluation History: Detail (The patient presented in ED with complaints of abdominal pain. The patient was transferred to inpatient floor. The patient is referred to OT/ PT to assess therapy needs. (Patient is a resident at [facility]).) Past Medical/Surgical Hx: PAST MEDICAL/SURGICAL HISTORY Past Surgical History Hernia Cataracts Skin skin cells removed PMH - Respiratory Hx Respiratory Disorders No PMH - Cardiovascular Hx Cardiovascular Disorders Yes Hx Hypertension Yes PMH - Neuro Hx Neurological Disorders Yes Hx Cerebrovascular Accident Yes: 2014 Hx Dementia Yes Hx Dizziness Yes Hx Headaches Yes PMH - GI Hx Gastrointestinal Disorders Yes Hx Abdominal Pain Yes Hx Diverticulitis Yes Hx Gastrointestinal Bleed Yes Hx Gastroesophageal Reflux Yes Hx Irritable Bowel Yes Hx Rectal Bleeding Yes PMH - Hx Genitourinary Disorders No Hx Bladder Problem Yes Hx Dialysis No Hx Kidney Stones No Hx Prostate Problems Yes Hx Renal Disease No Hx Urinary Tract Infection Yes PMH - Endocrine Hx Endocrine Disorders Yes Hx Diabetes No Hx Thyroid Disease Yes PMH - Musculoskeletal Hx Musculoskeletal Disorders No Hx Arthritis No Hx Back Injury No Hx Fibromyalgia No Hx Gout No Hx Musculoskeletal Disease No Hx Osteoporosis No PMH - Psych Hx Psychiatric Problems No Hx Anxiety Yes Hx Behavior Problems Yes Hx Depression Yes Hx Suicide Attempt No PMH - Hematology/Oncology Hx Hematology/Oncology Yes Disorders Hx Anemia No Hx Blood Disorders No Hx Bruising No Hx Cancer Yes: prostate, skin Hx Chemotherapy No Hx Radiation Therapy Yes Hx Clotting Problems No Hx Unexplained Bleeding No Premorbid Status: Detail (The patient is a resident of [facility] for 8 weeks and was ambulating with a 4 wheeled walker with a seat per his spouse. The patient's spouse stated increased L sided weakness was noticed recently with increased L foot drag. The patient has an AFO, 4 wheeled walker with a seat.) Social History: Detail (The patient has a supportive family.) Precautions: [place], [place] - Time With Patient Total Time Spent With Patient (Min): 30 Treatment Procedures: Detail (Initial Evaluation.) Subjective Information - Subjective Information Per Patient (The patient had complaints of lower back pain and abdominal region pain.) Objective Data - Mental Status Patient Orientation: Person (The patient thought he was currently in assisted living and did not know month or year. The patient followed simple commands. The patient did exhibit impulsivity.) - Visual Perception Deficit (The patient has a history of left neglect and visual field deficits per spouse.), Other - ROM Within normal limits (The patient's LE AROM is WFL.) - Strength/Tone Not within normal limits (The patient's R LE strength is generally 4+ to 5/5, L LE : isolated control is present in hip and knee with partial isolated control in ankle (limited dorsiflexion).), Other (The pa) - Coordination Deficit (Decreased LE RAD's to alternate tapping and knee flexion/extension.) - Bed Mobility Needs Assist (Moderate PA of 1 with supine to sit transfer.) - Transfers Needs Assist (CG with sit to stand transfer.) - Balance Balance Sitting: Fair (The patient initially leaned back and to the L and required maximal support when trying to put slippers on.) Balance Standing: Fair (Requires walker for support.) - Sensation Deficit (Not formally tested however proprioceptive deficits are probable.) - Gait Detail (The patient ambulated with 2 wheeled walker with CG and moderate verbal cues to hot die picker L LE a distance of 20 feet x 2. The patient's gait pattern was characterized by L foot drag and decreased weight bearing on the L LE. The patient also exhibited decreased L hand hold on walker.) - Special Tests Yes (Muscle tone testing was deferred however the patient exhibited trunk and cervical hypotonia as observed with posture in both sitting and standing.), No Therapy Assessment - Therapy Assessment Detail (The patient requires assistance with bed mobility and ambulation and exhibits decreased balance in both sitting and standing. The patient would benefit from ongoing PT both as an inpatient and once he is discharge in [facility] to return to his previous functional level. Use of L AFO during ambulation to improve safety and stability of gait is recommended as well as a two wheeled walker rather then a 4 wheeled walker.) Problem List - Problem List Physical Therapy Problem List: Detail (1) Assistance with mobility and transfers 2) Assistance with ambulation and numerous gait deviations 3) Decreased endurance with sustained physcial activity 4) Decreased sitting and standing balance 5) Decreased motor control of LUE and LE) Goals - Goals Physical Therapy Goals: 1) Independent bed mobility. 2) The patient will ambulate with assistive device with supervision a distance of 50 feet x 1. 3) Supervision with all transfers. 4) Good sitting and standing balance. Prognosis - Prognosis Good Plan - Plan Physical Therapy Plan: PT daily M-F for gait training, transfer training, bed mobility , balance exercises and neuromuscular re-education.
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
[2017-01-26] MEDS ORDERED: MORPHINE SULFATE 5 MG/ML PFS IVP PRN (15:38)
[2017-01-26] MEDS ORDERED: ONDANSETRON HCL IV 4 MG/2 ML VIAL IVP PRN (15:39)
[2017-01-26] MEDS: PATIENT OWN MED: MYBETRIQ 50 MG PO SCH (15:49)
[2017-01-26] MEDS: LOSARTAN POTASSIUM 25 MG TABLET PO SCH (15:49)
--- NOTE | 2017-01-26 16:07 | Discharge Summary ---
Providers Discharge Summary Date: 01/26/17 Date of admission: 01/24/17 23:31 Expected Date of Discharge: 01/26/17 Attending physician: JEFFERY ROJAS Physical Exam - Vital Signs Vital Signs: Vital Signs - Last 24 Hrs Temp Pulse Pulse Resp BP BP Pulse Ox 01/26/17 10:00 97.7 F 81 16 118/85 97 01/26/17 09:00 87 79 18 01/26/17 04:33 98.0 F 79 18 136/81 95 01/26/17 00:54 97.9 F 76 16 151/92 95 01/25/17 21:00 100.0 F H 82 18 143/84 95 - General General Appearance: Alert, Cooperative, Moderate distress Limitations: Language barrier (due to prior stroke, poor historian) - Head Head exam: Normal inspection - Eye Eye exam: Normal appearance, PERRL - ENT ENT exam: Normal exam Ear exam: Normal external inspection Nasal Exam: Normal inspection Mouth exam: Normal external inspection Teeth exam: Normal inspection - Neck Neck exam: Normal inspection, Full ROM. negative: Tenderness - Respiratory Respiratory exam: Normal lung sounds bilaterally. negative: Respiratory distress - Cardiovascular Cardiovascular Exam: Regular rate, Normal rhythm, Normal heart sounds Peripheral Pulses: 2+: Dorsalis Pedis (R), Dorsalis Pedis (L) - GI/Abdominal GI/Abdominal exam: Distended (modest distention, firm, worse over the past 24 hours), Hyperactive bowel sounds, Tenderness (generalized to all quads). negative: Guarding, Rigid - Rectal Rectal exam: Deferred - exam: Deferred - Extremities Extremities exam: Normal inspection, Full ROM, Normal capillary refill. negative: Tenderness - Back Back exam: Reports: Normal inspection, Full ROM. Denies: Muscle spasm, Rash noted, Tenderness - Neurological Neurological exam: Alert, Altered - Psychiatric Psychiatric exam: Anxious - Skin Skin exam: Dry, Intact, Normal color, Warm Hospitalization - Hospitalization Admission Diagnosis: diverticulitis - Problem List/Discharge Diagnosis (1) Diverticulitis Current Visit: Yes Status: Acute Discharge Diagnosis: Diverticulitis site: large intestine Diverticulitis bleeding: without bleeding Diverticulitis complication: without perforation or abscess Qualified Code(s): K57.32 - Diverticulitis of large intestine without perforation or abscess without bleeding Base Code: K57.92 - DVTRCLI OF INTEST, PART UNSP, W/O PERF OR ABSCESS W/O BLEED Comment: 01/26/17- 76 y/o male with 1 day hx abdominal pain and fever admitted with sigmoid diverticulitis. Case discussed with Dr Lugo 01/26/17, he viewed CT scan abdomen/pelvis. Uncomplicated diverticulitis, may begin clear liquid diet, advance as tolerated, continue IV antibiotics as prescribed. - more abdominal distention today, no tympany or ascites. Had him up for PT and lunch to allow for gas passage and reassess. Abdominal distention has worsened, is requiring pain medications more frequently for abdominal pain. Is becoming nauseated. Dr Lugo contacted with updated with exam findings. - dilaudid possibly causing nausea, change to morphine 2mg Q 4 hrs PRN - change phenergan to zofran 4mg IVP q 4 hrs PRN for less sedating effect - PT/OT eval for weakness and hx CVA w/ left sided neglect complete - transfer to [facility] for worsening of abdominal pain, distention and diverticulitis under Dr Lugo - family and patient aware and in agreement (2) Weakness Current Visit: Yes Status: Acute Base Code: R53.1 - WEAKNESS Comment: 01/26- 76 y/o male with 1 day hx abdominal pain and fever admitted with sigmoid diverticulitis - encourage to amb to bathroom with assist as much as possible - PT/OT eval for weakness and hx CVA w/ left sided neglect - plan to discharge back to [facility] when stable (3) DVT prophylaxis Current Visit: Yes Status: Acute Base Code: [id number] - Comment: 01/26/17- hx hemorrhagic stroke. Will use SCD while in bed (4) Full code status Current Visit: Yes Status: Acute Base Code: Z78.9 - OTHER SPECIFIED HEALTH STATUS Comment: 01/26/17- Full code during this hospitalization - Hospitalization Course Disposition: Acute Care Hospital Transfer Hospital Course: 76 y/o male from [facility] for 1 day history of abdominal pain and fever. PMH: CVA, HTN, GERD, hypothyroidism, prostate ca PSH: hernia repair, prostatectomy Patient is a poor historian due to CVA history and memory impairment. Per report, began with abdominal pain the morning of admission which progressed to fever of 102 and increased weakness. notes he is usually independent, able to walk with verbal assist. Day of admission was not able to follow verbal cues , left sided weakness more pronounced, left sided visual neglect more pronounced. Denies knowledge of vomiting but has noticed decreased appetite. Denies dysuria, cough, diarrhea. Known hx diverticulosis with a few previous episodes of colitis-type symptoms, never required hospitalization. Last colonoscopy March [address] Heath with subsequent referral to Dr Lebron due to high internal hemorrhoids While in the ED WBC 14.4, Hgb 15.3, Band 7.0, GFR>60. VSS. UA showed proteinuria. CT abdomen/pelvis- diverticulosis, likely signoid diverticulitis, no abscess. Hypodense liver lesions, questionable cyst in nature, 1cm adrenal nodule, small hiatal hernia. Radiologist recommends f/u liver lesions and adrenal nodule in 3-6 months. Admitted for diverticulitis, IV antibiotics, pain management 01/25/17- resting in bed comfortably, at bedside to help with history. Reports he is weaker than usual to left side, needs more assist. Did have large "explosive" BM this am. Appears painful with touching abdomen but notices he is much more comfortable after Dilaudid is given. No new developments over the last several hours. Has remained afebrile PCP: Dr Castillo-angela [employer] Secretary- Dr Heath Abnormal Labs: Abnormal Lab Results 01/25/17 01/26/17 Range/Units 06:07 06:16 WBC 13.0 H (4.2-12.2) K/uL RBC 4.02 L 4.39 L (4.40-5.70) M/uL Hgb 13.2 L (14.0-18.0) gm/dl Hct 39.7 L (42.0-52.0) % MCV 98.8 H 98.2 H (81-97) fl MCH 33.2 H (27-33) pg MPV 10.6 H 10.7 H (7.4-10.4) fl Neutrophils % 84.0 H 87.0 H (47-80) % Band Neutrophils % 7.0 H (0-5) % Lymphocytes 6.0 L 8.0 L (16-45) % Condition at Discharge: (3) Guarded Discharge Medications - Discharge Medications Home Medications: Ambulatory Orders Amlodipine Besylate [Norvasc] 5 mg PO DAILY 01/24/17 [Last Taken 01/24/17] Ascorbic Acid [Vitamin C] 500 mg PO DAILY 01/24/17 [Last Taken 01/24/17] Cholecalciferol (Vitamin D3) [Vitamin D3] 5,000 unit PO DAILY 01/24/17 [Last Taken 01/24/17] Docusate Sodium [Colace] 100 mg PO QHS 01/24/17 [Last Taken 01/23/17] Docusate Sodium [Stool Softener] 100 mg PO QHS 01/24/17 [Last Taken 01/23/17] Donepezil HCl 5 mg PO QHS 01/24/17 [Last Taken 01/23/17] Escitalopram Oxalate [Lexapro] 5 mg PO DAILY 01/24/17 [Last Taken Unknown] Ezetimibe 10 mg PO DAILY 01/24/17 [Last Taken 01/24/17] Fexofenadine HCl 60 mg PO DAILY 01/24/17 [Last Taken 01/24/17] Fluticasone Propionate [Flonase] 2 spray EACH NARES DAILY 01/24/17 [Last Taken 01/24/17] Levothyroxine Sodium [Synthroid] 50 mcg PO DAILY 01/24/17 [Last Taken 01/24/17] Losartan Potassium 50 mg PO DAILY 01/24/17 [Last Taken 01/23/17] Melatonin 1 - 2 tab PO QHS 01/24/17 [Last Taken 01/23/17] Modafinil [Provigil] 100 mg PO DAILY 01/24/17 [Last Taken 01/24/17] Lehigh-3 Fatty Acids/Fish Oil [Fish Oil 1,000 mg Capsule] 1 each PO DAILY [Last Taken 01/24/17] Omeprazole 40 mg PO DAILY 01/24/17 [Last Taken 01/24/17] Cholecalciferol (Vitamin D3) [Vitamin D3] 1 cap PO DAILY 01/25/17 [Last Taken Unknown] Dextran 70/Hypromellose [Natural Balance Tears Eye Drop] 1 drop AFFEYE Q2HR PRN 01/25/17 [Last Taken Unknown] Dextran 70/Hypromellose [Natural Balance Tears Eye Drop] 1 drop AFFEYE QHS 01/25 [Last Taken Unknown] Fluvoxamine Maleate 0.5 tab PO DAILY 01/25/17 [Last Taken Unknown] Mirabegron [Myrbetriq] 1 tab PO DAILY 01/25/17 [Last Taken Unknown] Omeprazole 1 cap PO DAILY 01/25/17 [Last Taken Unknown] Pantoprazole Sodium [Protonix] 80 mg PO DAILYAC 01/26/17 [Last Taken Unknown] Psyllium Husk/Aspartame [Metamucil Pwd] 3.4 gm PO DAILY 01/26/17 [Last Taken Unknown] Discharge Plan - Discharge Instructions Activity at Discharge: Increase Activity as Tolerated Diet at Discharge: Other (NPO until advised after arriving to receiving hospital )
[2017-01-26] MEDS: FLUTICASONE PROPIONATE 50MCG NASAL 16 GM BTL SCH (16:19)
== END 2017-01-26 18:00 | disposition short-term general hospital (02) | DRG 392 ==
LOC: ER 17:08 → MEDSURG 23:31
PROVIDERS: ADMIT Family Medicine; ATTEND Family Medicine
DX: K57.32 Diverticulitis of large intestine without perforation or abscess without bleeding (principal); Z86.73 Personal history of transient ischemic attack (TIA), and cerebral infarction without residual deficits; Z85.46 Personal history of malignant neoplasm of prostate; K21.9 Gastro-esophageal reflux disease without esophagitis; E03.9 Hypothyroidism, unspecified; F03.90 Unspecified dementia, unspecified severity, without behavioral disturbance, psychotic disturbance, mood disturbance, and anxiety; I10 Essential (primary) hypertension
CPT/HCPCS: 93041; 99285 ×2; 94760; 96365; 96375; 83605; 83690; 80076; 80048; 81003; 85027; 74177; Q9967; J0744; J1170; 80053; 97166; 99223; 99239; J2550; J7030